=== PATIENT | male | born 1950 | race Caucasian/White ===

== ENCOUNTER 2018-05-09 07:21 | Inpatient (IN) | payer MEDICAID, OTHER ==
[~2018-05-09] VITALS: Ht 172.7 cm; Wt 100.4 kg
[~2018-05-09 07:21] MED LIST: ASPI-1158; ASPI-1159 PO; FURO-151; FURO40TA5 PO; GABA300C; GABA300S PO; HYDR-4134 PO; HYDR-4135; REN400 PO; SIMV20TA2 PO; TERA2CAP4; TRAM50TA94
[2018-05-09 08:02] LABS: BASOPHILS % 0.7 % (0.0-2.0); EOSINOPHILS % 0.1 % (0.0-5.0); HEMATOCRIT. 44.1 % (42.0-52.0); HEMOGLOBIN. 14.7 g/dL (14.0-18.0); LYMPHOCYTES % 7.8 % (20.0-50.0); MEAN CORPUSCULAR HEMOGLOBIN 33.1 pg (28.0-32.0); MEAN CORPUSCULAR VOLUME 99.1 fL (80.0-94.0); MEAN PLATELET VOLUME 7.3 fl (7.4-10.4); MONOCYTES % 3.1 % (2.0-8.0); NEUTROPHILS % 88.3 % (40.0-76.0); PLATELET 160 x1000/uL (130-400); RED BLOOD CELL COUNT 4.45 mill/uL (4.7-6.1); RED CELL DISTRIBUTION WIDTH 15.3 % (11.6-14.6)
[2018-05-09 08:06] LABS: CHLORIDE 99 mEq/L (98-107)
[2018-05-09] MEDS ORDERED: IPRATROPIUM/ALBUTEROL 0.5-3(2.5)MG/3ML NEB INH PRN (14:30)
[2018-05-09] MEDS ORDERED: DIPHENHYDRAMINE 50MG/ML VIAL IV PRN (14:30)
[2018-05-09] MEDS ORDERED: DOCUSATE SODIUM 100MG CAPSULE PO PRN (14:30)
[2018-05-09] MEDS ORDERED: ONDANSETRON HCL 4MG/2ML INJ IV PRN (14:30)
[2018-05-09] MEDS ORDERED: MAGNESIUM/ALUMINUM HYDROXIDE/SIMETHICONE 30ML UDC PO PRN (14:30)
[2018-05-09] MEDS ORDERED: CLONIDINE 0.1MG TABLET PO PRN (14:30)
[2018-05-09] MEDS ORDERED: ACETAMINOPHEN 325MG TABLET PO PRN (14:30)
[2018-05-09] MEDS ORDERED: GUAIFENESIN 200MG/10ML SUGAR FREE UDC PO PRN (14:30)
[2018-05-09] MEDS: BLOOD SUGAR DIAGNOSTIC STRIP TEST SCH (20:41)
[2018-05-09] MEDS: METOPROLOL TARTRATE 25MG TABLET PO SCH (20:54)
[2018-05-09] MEDS: INSULIN LISPRO 100 UNITS/ML SUBCUT SCH (20:56)
[2018-05-09] MEDS ORDERED: ENOXAPARIN 40MG/0.4ML SYR SUBCUT SCH (21:00)
[2018-05-09] MEDS ORDERED: FAMOTIDINE 20MG TABLET PO SCH (21:00)
[2018-05-09] MEDS: HYDRALAZINE HCL 50MG TABLET PO SCH (23:00)
[2018-05-09 23:28] LABS: CREATINE KINASE MB FRACTION 3.2 ng/mL (0.5-3.6)
[2018-05-10] VITALS: BP 129/54
[2018-05-10] MEDS ORDERED: NITROGLYCERIN 0.4MG TABLET SL SL PRN (00:17)
[2018-05-10] MEDS ORDERED: ZOLPIDEM TARTRATE 5MG TABLET PO PRN (00:17)
[2018-05-10] MEDS ORDERED: DEXTROSE 50% WATER 50ML SYRINGE IV PRN (00:18)
[2018-05-10 04:00] VITALS: BP 122/57
[2018-05-10] MEDS: HYDRALAZINE HCL 50MG TABLET PO SCH (06:33)
[2018-05-10] MEDS: BLOOD SUGAR DIAGNOSTIC STRIP TEST SCH ×2 (06:34→12:20)
[2018-05-10 07:00] LABS: CREATINE KINASE MB FRACTION 2.9 ng/mL (0.5-3.6)
[2018-05-10] MEDS: INSULIN LISPRO 100 UNITS/ML SUBCUT SCH ×2 (07:32→12:27)
[2018-05-10 07:42] VITALS: BP 141/70
[2018-05-10] MEDS: SEVELAMER CARBONATE 800 MG TABLET PO SCH ×2 (08:02→12:51)
[2018-05-10] MEDS: METOPROLOL TARTRATE 25MG TABLET PO SCH (08:02)
[2018-05-10] MEDS ORDERED: AMLODIPINE 10MG TABLET PO SCH (09:00)
[2018-05-10] MEDS ORDERED: FAMOTIDINE 20MG TABLET PO SCH (09:00)
[2018-05-10] MEDS ORDERED: FOLIC ACID/VITAMIN B COMP W-C TABLET PO SCH (09:00)
[2018-05-10] MEDS ORDERED: ASPIRIN 325MG EC TABLET PO SCH (09:00)
[2018-05-10 09:42] LABS: BASOPHILS % 1.2 % (0.0-2.0); EOSINOPHILS % 3.1 % (0.0-5.0); HEMATOCRIT. 39.1 % (42.0-52.0); LYMPHOCYTES % 26.4 % (20.0-50.0); MEAN CORPUSCULAR VOLUME 99.6 fL (80.0-94.0); MEAN PLATELET VOLUME 7.8 fl (7.4-10.4); MONOCYTES % 10.1 % (2.0-8.0); NEUTROPHILS % 59.2 % (40.0-76.0); PLATELET 153 x1000/uL (130-400); RED BLOOD CELL COUNT 3.93 mill/uL (4.7-6.1); RED CELL DISTRIBUTION WIDTH 15.3 % (11.6-14.6)
[2018-05-10 13:56] VITALS: BP 102/59
== END 2018-05-10 15:51 | disposition home or self-care (01) | DRG 420 ==
LOC: ER 07:21 → 6WST 10:53 → EDBEDREQ 10:55 → ENRESERV 23:08
PROVIDERS: ADMIT Internal Medicine; ATTEND Internal Medicine
PROC: 5A1D70Z Performance of Urinary Filtration, Intermittent, Less than 6 Hours Per Day (ICD-10-PCS; principal; 2018-05-10)
DX: E11.649 Type 2 diabetes mellitus with hypoglycemia without coma (principal); G93.41 Metabolic encephalopathy; I12.0 Hypertensive chronic kidney disease with stage 5 chronic kidney disease or end stage renal disease; E11.22 Type 2 diabetes mellitus with diabetic chronic kidney disease; E83.51 Hypocalcemia; N18.6 End stage renal disease; Z79.4 Long term (current) use of insulin; Z99.2 Dependence on renal dialysis; Z79.82 Long term (current) use of aspirin; Z79.899 Other long term (current) drug therapy
CPT/HCPCS: 36415; 71045; 80048; 80061; 82550; 82553; 82962; 83036; 84484; 93005; 93970; 96372; 99291; C1893; J1650; J1815

== ENCOUNTER 2019-03-23 13:58 | Emergency (ER) | payer MEDICAID ==
[~2019-03-23] VITALS: Ht 172.7 cm; Wt 95.0 kg
[~2019-03-23 13:58] MED LIST changes: -ASPI-1159 PO; +ASPI-1497 PO; -HYDR-4135
[2019-03-23] MEDS ORDERED: ACETAMINOPHEN 325MG TABLET PO ONE (16:30)
[2019-03-23 18:14] VITALS: BP 145/60
== END 2019-03-23 18:13 | disposition home or self-care (01) ==
LOC: ER 14:08
DX: S09.8XXA Other specified injuries of head, initial encounter (principal); S39.012A Strain of muscle, fascia and tendon of lower back, initial encounter; W01.0XXA Fall on same level from slipping, tripping and stumbling without subsequent striking against object, initial encounter; Y93.89 Activity, other specified; Y92.89 Other specified places as the place of occurrence of the external cause; Y99.8 Other external cause status; N18.6 End stage renal disease; Z99.2 Dependence on renal dialysis; E11.9 Type 2 diabetes mellitus without complications
CPT/HCPCS: 72100; 99284